=== PATIENT | male | born 1995 | race Caucasian/White ===

== ENCOUNTER 2021-05-21 20:31 | Emergency (ER) | payer OTHER ==
[~2021-05-21] VITALS: Ht 172.7 cm; Wt 61.4 kg
[2021-05-21] MEDS ORDERED: PRED20TA PO (23:11)
[2021-05-21 23:26] VITALS: BP 124/96
== END 2021-05-21 23:32 | disposition home or self-care (01) ==
LOC: ER 20:33
DX: M25.531 Pain in right wrist (principal); F12.90 Cannabis use, unspecified, uncomplicated; Z79.899 Other long term (current) drug therapy
CPT/HCPCS: 99283

== ENCOUNTER 2024-07-16 23:45 | Emergency (ER) | payer OTHER ==
[~2024-07-16] VITALS: Ht 172.7 cm; Wt 47.8 kg
[2024-07-17] MEDS: ketorolac trometh 15mg/ml vial 15 MG/ML ML IM ONE (00:25)
[2024-07-17] MEDS: morphine 4 MG/ML inj SYRINge IM ONE (00:25)
[2024-07-17] MEDS ORDERED: HYDR-3965 PO ×2 (00:28→09:34)
[2024-07-17 00:41] VITALS: BP 116/64; PULSE 60; RESP 15; TEMP 98.5; O2SAT 99
[2024-07-17] MEDS ORDERED: METH4TAB81 PO (01:01)
[2024-07-17] MEDS ORDERED: METH4TAB17 PO (09:34)
[2024-07-17] MEDS ORDERED: TRAM50TA2 PO (10:49)
== END 2024-07-17 00:45 | disposition home or self-care (01) ==
LOC: ER 23:46
DX: M54.16 Radiculopathy, lumbar region (principal); F12.90 Cannabis use, unspecified, uncomplicated; Z91.030 Bee allergy status
CPT/HCPCS: 96372; 99284; J1885; J2270